=== PATIENT | female | born 1955 | race Caucasian/White ===

== ENCOUNTER 2021-03-08 18:37 | Emergency (ER) | payer OTHER, SELFPAY ==
--- NOTE | 2021-03-08 18:46 | ED.URI ---
HPI - URI/Sore Throat General Chief Complaint: Upper Respiratory Infection Stated Complaint: Fever, Coughing, drainage Time Seen by Provider: 03/08/21 19:14 Source: patient and RN notes reviewed Mode of arrival: ambulatory Limitations: no limitations History of Present Illness HPI Narrative: 65-year-old female with 40-year history of smoking presents with concern for cough, chest congestion, head congestion, nasal drainage, postnasal drainage, irritated throat. Reports fever started today. Reports she has not been vaccinated for Covid, works with the public at a grocery store. She denies body aches, chills, sweats, nausea, vomiting, diarrhea, headache, loss of sense of taste or smell. MD elicited complaint: cough Related Data Allergies Allergy/AdvReac Type Severity Reaction Status Date / Time No Known Allergies Allergy Verified 03/08/21 18:48 Review of Systems Review of Systems: Narrative: CONSTITUTIONAL: Denies malaise, chills, sweats, or fever. EYES: Denies visual changes, redness, or discharge. ENT: Reports rhinorrhea, congestion, postnasal drainage, irritated throat. Denies sinus pain, otalgia and sore throat. CARDIOVASCULAR: Denies chest pain, palpitations, or edema. RESPIRATORY: Reports cough. Denies dyspnea. GASTROINTESTINAL: Denies abdominal pain, nausea, vomiting, diarrhea SKIN: Denies rash or itching. MUSCULOSKELETAL: Denies myalgia. NEUROLOGIC: Denies headache. All systems reviewed & are unremarkable except as noted in HPI and below PMFSH Comments At time of signature, agree with nursing past medical, surgical, social and family history. There is no relevant family history pertinent to the presenting complaint Exam Narrative: Exam Narrative: GENERAL: Well-appearing, well-nourished, and in no acute distress. HEAD: Normocephalic EYES: PERRLA, conjunctivae clear ENT: Nares clear, turbinates edematous and erythematous, clear discharge. Mucous membranes moist. TM pearly rodarte with dull light reflex bilaterally; no tragal tenderness. Oropharynx not erythematous without lesions. Tonsils not enlarged and without exudate, no drooling, no hoarseness, no trismus, uvula midline. NECK: Supple. No lymphadenopathy CHEST: Scattered rhonchi, breath sounds equal. No wheezing, rales, or stridor. No respiratory distress, speaks in full sentences. HEART: Regular rate and rhythm. No murmur heard. SKIN: Warm, dry, no rash. NEURO: Alert and oriented x3. PSYCH: Normal mood and affect Course Course Emergency Course: Patient is aware of diagnosis, understands and agrees to treatment plan. Anticipatory guidance given. Patient agrees to follow-up as directed and is aware of reasons to seek care at the emergency department. Portions of this record may have been created with voice recognition software Vital Signs Vital signs: Vital Signs Temperature 100.5 F H 03/08/21 18:50 Pulse Rate 100 03/08/21 18:50 Respiratory Rate 20 03/08/21 18:50 Blood Pressure 179/83 H 03/08/21 18:50 Pulse Oximetry 97 03/08/21 18:50 Temperature 100.5 F H 03/08/21 18:50 Pulse Rate 100 03/08/21 18:50 Respiratory Rate 20 03/08/21 18:50 Blood Pressure 179/83 H 03/08/21 18:50 Pulse Oximetry 97 03/08/21 18:50 Reviewed. MDM - URI/Sore Throat MDM Narrative Medical decision making narrative: Differential diagnosis considered: Brandt virus, strep pharyngitis, allergic rhinitis, upper respiratory tract infection, sinusitis, rhinosinusitis, nasopharyngitis. viral pharyngitis, otitis media, otitis externa, pneumonia, bronchitis, viral cough syndrome, viral syndrome, and influenza. Exam findings show no acute concerns or changes; patient is non-toxic appearing and is in no distress. Patient is appropriate for outpatient treatment and follow-up. Lab Data Attestation: I reviewed the patient's lab results. Labs: Lab Results 03/08/21 Range/Units 19:04 POC SARS CoV-2 Ag Negative (Negative) Strep Screen Presump
[2021-03-08 18:50] VITALS: BP 179/83; PULSE 100; RESP 20; TEMP 38.1; O2SAT 97
[2021-03-08 19:25] VITALS: BP 150/80
--- NOTE | 2021-03-12 15:50 | PC.NURSE ---
clinical lab report received. noted sars-cov-2 PCR not performed. Director Tej Bello and pt aware. pt states will not do repeat test at this time, stating her rapid covid test was negative at clinic. states she will speak to covid hotline at work to determine if able to go back to work. states she should no longer be on isolation because her initial symptoms, which started 10 days, ago are gone.
== END 2021-03-08 19:25 | disposition home or self-care (01) ==
PROVIDERS: Emergency Provider Nurse Practitioner
DX: J32.9 Chronic sinusitis, unspecified (principal); J40 Bronchitis, not specified as acute or chronic; Z20.822 Contact with and (suspected) exposure to COVID-19
CPT/HCPCS: 87081; 87426; 87880; 99203; C9803; G0463; U0003; U0005

== ENCOUNTER 2021-03-15 16:40 | Emergency (ER) | payer OTHER, SELFPAY ==
[2021-03-15 16:56] VITALS: BP 145/87; PULSE 116; RESP 20; TEMP 36.9; O2SAT 98
--- NOTE | 2021-03-15 17:13 | ED.SKABFB ---
HPI - Skin/Abscess/Foreign Bdy General Chief complaint: Skin/Abscess/Foreign Body Stated complaint: pos spider bite on back History of Present Illness HPI narrative: This is a 65-year-old female comes in complaining she what she believes to be is a bug bite patient states that she has severe pain at nighttime is on her right chest and the right side of her back they not only itch but they are very painful Related Data Allergies Allergy/AdvReac Type Severity Reaction Status Date / Time No Known Allergies Allergy Verified 03/08/21 18:48 Review of Systems Review of Systems: Narrative: CONSTITUTIONAL: Denies fever, chills, or sweats. EYES: Denies visual changes, redness, or discharge. ENT: Denies rhinorrhea, congestion, sore throat, or otalgia. CARDIOVASCULAR:Denies chest pain, palpitations, or edema. RESPIRATORY: Denies cough or dyspnea. GASTROINTESTINAL: Denies abdominal pain, nausea, vomiting, or diarrhea. GENITOURINARY: Denies dysuria or hematuria. SKIN reports rash or itching. Rash to chest and back right side MUSCULOSKELETAL:Denies back pain, joint pain, or myalgia. NEUROLOGIC: Denies headache, numbness, or weakness. PSYCHIATRIC:Denies anxiety or depression PMFSH Comments At time as signature, I have reviewed and agree with nursing past medical, social, surgical and family history. Please see nursing chart for further information. There is no relevant family history pertinent to the presenting complaint. Exam Narrative: Exam Narrative: GENERAL:Well-appearing, well-nourished, and in no acute distress. HEAD:Normocephalic, atraumatic. EYES: PERRLA and EOMI. ENT: Nares clear, no rhinorrhea or epistaxis. Mucous membranes moist. NECK: Supple. CHEST: Clear to auscultation. No respiratory distress. HEART: Regular rate and rhythm. Normal peripheral pulses. ABDOMEN: Soft, nontender, nondistended, normal active bowel sounds. EXTREMITIES: Normal range of motion. No edema. SKIN: Warm, dry, erythema with ecchymosis pinpoint weeping circular bullea rash left breast area and left back NEURO: No focal deficits. Alert and oriented x3. Course Vital Signs Vital signs: Vital Signs Temperature 98.5 F 03/15/21 16:56 Pulse Rate 116 H 03/15/21 16:56 Respiratory Rate 20 03/15/21 16:56 Blood Pressure 145/87 H 03/15/21 16:56 Pulse Oximetry 98 03/15/21 16:56 Temperature 98.5 F 03/15/21 16:56 Pulse Rate 116 H 03/15/21 16:56 Respiratory Rate 20 03/15/21 16:56 Blood Pressure 145/87 H 03/15/21 16:56 Pulse Oximetry 98 03/15/21 16:56 Discharge Plan Discharge Clinical Impression: Shingles Qualifiers: Herpes zoster complications: without complications Qualified Code(s): B02.9 - Zoster without complications Patient Disposition: Home, Self-Care Condition: Stable Instructions: Antibiotic Form, Shingles (ED) Additional Instructions: Use skin creams/lotion, such as those containing calamine or pramoxine to reduce itchiness Avoid scratching when possible to prevent worsening of the condition and disruption of the skin that could lead to bacterial infection To relieve itching, place a cool washcloth or some ice over the area that itches, rather than scratching Return to the office or seek ER visit if condition is not improving or worsens with fever, swelling, difficulty breathing or swallowing. Patient Language: Pashto Prescriptions: New valacyclovir [Valtrex] 1 gram tablet 1,000 mg PO TID 7 Days Qty: 21 RF: 0 No Action doxycycline monohydrate 100 mg tablet 100 mg PO BID 7 Days Qty: 14 RF: 0 methylprednisolone [Medrol (Leon)] 4 mg tablets,dose pack See Rx Instructions .ROUTE .COMPLEX Qty: 21 RF: 0 Follow-up/Referrals: PHYSICIAN,HOSPITAL ADMINISTRATIVE ASSISTANT [Primary Care Provider] - Time of Disposition: 17:24
== END 2021-03-15 17:28 | disposition home or self-care (01) ==
PROVIDERS: Emergency Provider Nurse Practitioner Family
DX: B02.9 Zoster without complications (principal)
CPT/HCPCS: 99213; G0463

== ENCOUNTER 2022-06-07 13:28 | Emergency (ER) | payer MEDICARE, SELFPAY ==
--- NOTE | ~2022-06-07 | CT_ITS ---
EXAMINATION: CT abdomen pelvis wo con DATE: 06/07/2022 14:14 INDICATION: Right flank pain. TECHNIQUE: Computed tomography (CT) of the abdomen and pelvis was performed without intravenous contr ast. Automated exposure control and iterative reconstruction technique were employed. The dose-length product was 180.58 mGy-cm. COMPARISON: None. FINDINGS: The visualized portions of the lung bases demonstrate centrilobular nodules and tree-in-bud opacities in the lower lobes, left worse in right, consistent with pneumonia. There is mucous pluggi ng in the lower lobes. There is mild bronchiectasis and mucous plugging in right middle lobe and ling isai. No pleural effusion. The heart size is normal. There is a small pericardial effusion. The liver, gallbladder, spleen, pancreas, and adrenal glands are normal. There are cysts in the kidneys measuri ng up to 2.9 cm on the left. There are hemorrhagic cysts in the kidneys measuring up to 17 mm on the left. There are 4 stones measuring up to 4 mm in right kidney. There are 2 stones measuring up to 5 m m in left kidney. There are no dilated loops of bowel. The appendix is normal. There are no pathologi krysta enlarged lymph nodes. There is no free intraperitoneal fluid. There is a left inguinal hernia c ontaining fat. There are multiple chronic compression fractures in the spine. There is moderate lumba r spondylosis. 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 IMPRESSION: 1. Bilateral nonobstructing kidney stones. 2. Bilateral lower lobe pneumonia. 3. Small pericardial effusion. Reviewed, dictated and finalized at location A.
--- NOTE | ~2022-06-07 | XR_ITS ---
EXAMINATION: XR chest 1V portable DATE: 06/07/2022 14:00 INDICATION: Shortness of breath and cough. TECHNIQUE: A single frontal view of the chest was obtained. COMPARISON: None. FINDINGS: The chest demonstrates clear lungs without pneumonia, pleural effusion, or pneumothorax. Th e heart size is normal. IMPRESSION: 1. No acute cardiopulmonary disease. Reviewed, dictated and finalized at location A.
[2022-06-07 13:31] VITALS: BP 150/100; PULSE 108; RESP 16; TEMP 36.8; O2SAT 98
--- NOTE | 2022-06-07 13:35 | ED.FEMALEGU ---
HPI - Female Genitourinary General Chief complaint: Urogenital-Female Stated complaint: right flank pain Time Seen by Provider: 06/07/22 13:34 History of Present Illness HPI Narrative: Patient is a 66-year-old female presenting with right flank pain. Patient states that for the last several weeks she has had intermittent sharp right flank pain. States that this is associated with decreased urination. States that she no longer feels the urge to urinate. States that she has been drinking plenty of water and her urine continues to be dark. She denies midline back pain, saddle anesthesia, bladder or bowel incontinence. Patient states that she has been getting over a cold lately and she had slight fever yesterday. States she has also had a productive cough and slight shortness of breath. She denies headache, chest pain, abdominal pain, nausea or vomiting, diarrhea, dysuria, leg swelling. Related Data Allergies Allergy/AdvReac Type Severity Reaction Status Date / Time No Known Allergies Allergy Verified 06/07/22 13:33 Review of Systems Review of Systems: All systems reviewed & are unremarkable except as noted in HPI and below Exam Narrative: GENERAL: Well-appearing, well-nourished, and in no acute distress. HEAD: Normocephalic, atraumatic. EYES: PERRLA and EOMI. ENT: Nares clear, no rhinorrhea or epistaxis. Mucous membranes moist. NECK: Supple. CHEST: Clear to auscultation. No respiratory distress. HEART: Regular rate and rhythm. No murmur heard. Normal peripheral pulses. ABDOMEN: Soft, nontender, nondistended, normal active bowel sounds. No CVA tenderness. EXTREMITIES: Normal range of motion. No edema. SKIN: Warm, dry, no rash. NEURO: No focal deficits. Alert and oriented x3. PSYCH: Normal mood and affect. Course Vital Signs Vital signs: Vital Signs Temperature 98.2 F 06/07/22 13:31 Pulse Rate 108 H 06/07/22 13:31 Respiratory Rate 16 06/07/22 13:31 Blood Pressure 150/100 H 06/07/22 13:31 Pulse Oximetry 98 06/07/22 13:31 Temperature 99.6 F 06/07/22 14:30 Pulse Rate 105 H 06/07/22 15:46 Respiratory Rate 16 06/07/22 15:46 Blood Pressure 187/91 H 06/07/22 15:46 Pulse Oximetry 97 06/07/22 15:46 MDM - Female Genitourinary MDM Narrative Medical decision making narrative: Patient is a 66-year-old female presenting with right flank pain and decreased urination. Patient is tachycardic, otherwise vitals are within normal limits. Exam is unremarkable. CT abdomen pelvis shows kidney stones in the right kidney as well as bilateral cysts some of which are hemorrhagic. This fits with her urinalysis with numerous RBCs. Blood work remarkable for leukocytosis. There is also evidence of pneumonia in her lung bases. We will start her on Augmentin and azithromycin. She continues to saturate well on room air. Recommended she follow-up closely with urology as well as primary care. Strict return precautions were given. Patient voiced understanding and is agreeable with plan. Discharged in stable condition. Lab Data Result diagrams: 06/07/22 14:02 06/07/22 14:02 Labs: Lab Results 06/07/22 06/07/22 06/07/22 Range/Units 14:01 14:02 14:02 WBC 14.9 H (4.5-10.0) K/mm3 RBC 4.08 L (4.2-5.4) M/mm3 Hgb 12.6 (12.0-15.0) g/dL Hct 37.2 (37.0-47.0) % MCV 91.2 (80-100) fl MCH 30.9 (26-34) pg MCHC 33.9 (32-36) g/dl RDW 13.8 (11.5-14.5) % Plt Count 197 (150-375) k/mm3 MPV 11.2 H (7.4-10.4) fl Immature Gran % (Auto) 0.4 (0-0.5) % Neut % (Auto) 83.5 H (45.5-73.1) % Lymph % (Auto) 8.8 L (18.3-44.2) % [place] % (Auto) 6.4 (2.6-8.5) % Eos % (Auto) 0.6 (0-4.4) % Baso % (Auto) 0.3 (0.2-1.2) % Lymph # (Auto) 1.31 (0.9-3.2) K/mm3 [place] # (Auto) 1.0 H (0.1-0.6) K/mm3 Eos # (Auto) 0.1 (0-0.3) K/mm3 Baso # (Auto) 0.1 (0.0-0.1) K/mm3 Abs Immat Gran (auto) 0.06 H (0.00-0.031) K/mm
[2022-06-07 13:53] VITALS: BP 201/92; PULSE 107; RESP 24; O2SAT 98
[2022-06-07 14:00] VITALS: BP 196/102; PULSE 111; RESP 21
[2022-06-07 14:07] LABS: Basophils Absolute Auto 0.1 K/mm3 (0.0-0.1); Basophils Percent Auto 0.3 % (0.2-1.2); Eosinophils Absolute Auto 0.1 K/mm3 (0-0.3); Eosinophils Percent Auto 0.6 % (0-4.4); Hematocrit 37.2 % (37.0-47.0); Hemoglobin 12.6 g/dL (12.0-15.0); Immature Granulocyte Absolute 0.06 K/mm3 (0.00-0.031); Immature Granulocyte Percent A 0.4 % (0-0.5); Lymphocytes Absolute Auto 1.31 K/mm3 (0.9-3.2); Lymphocytes Percent Auto 8.8 % (18.3-44.2); Mean Corpuscular HGB Conc 33.9 g/dl (32-36); Mean Corpuscular Hemoglobin 30.9 pg (26-34); Mean Corpuscular Volume 91.2 fl (80-100); Mean Platelet Volume 11.2 fl (7.4-10.4); Monocytes Percent Auto 6.4 % (2.6-8.5); Neutrophils Absolute Auto 12.5 K/mm3 (1.3-6.7); Neutrophils Percent Auto 83.5 % (45.5-73.1); Platelet Count Result 197 k/mm3 (150-375); Red Blood Count 4.08 M/mm3 (4.2-5.4); Red Cell Distribution Width 13.8 % (11.5-14.5); White Blood Count 14.9 K/mm3 (4.5-10.0)
[2022-06-07 14:08] LABS: Appearance Urine Clear (Clear); Bilirubin Urine Negative (Negative); Blood Urine 3+ (Negative); Color Urine Yellow (Yellow); Glucose Urine UA Negative (Negative); Ketones Urine 1+ mg/dL (Negative); Leukocyte Esterase Ur Trace LEU/UL (Negative); Nitrate Urine Negative (Negative); Protein Urine 2+ mg/dL (Negative); Specific Grav Ur 1.015 (1.001-1.035); Urobilinogen Urine 0.2 mg/dL (<2.0)
[2022-06-07] MEDS: SODIUM CHLORIDE 0.9% IV 1,000 ML 999 ML IV CONT (14:12)
[2022-06-07 14:15] LABS: Mucus Urine Rare /lpf; RBC Urine >75 /hpf (0-2); Squamous Epithelial Cell Urine Few /hpf (Few)
[2022-06-07 14:16] LABS: Add Urine Microscopic? YES
[2022-06-07 14:20] LABS: Alanine Aminotransferase 44 U/L (6-35); Albumin Level 4.4 g/dL (3.5-5.1); Alkaline Phosphatase 71 U/L (38-126); Anion Gap 11 mmol/L (8-16); Aspartate Amino Transferase 53 U/L (14-36); Bilirubin,Total 0.8 mg/dL (0.2-1.3); Blood Urea Nitrogen 11 mg/dL (7-17); Calcium 8.9 mg/dL (8.4-10.2); Carbon Dioxide 20 mmol/L (22-30); Chloride 106 mmol/L (98-107); Estimated CRCL calculation 54 ml/min; Estimated Glomerular Filt Rate > 60; Glucose 110 mg/dL (65-110); Potassium 3.5 mmol/L (3.4-5.0); Sodium 137 mmol/L (137-145)
[2022-06-07 14:30] VITALS: BP 195/93; PULSE 94; RESP 25; TEMP 37.6; O2SAT 100
[2022-06-07 14:32] VITALS: BP 195/93; PULSE 102; RESP 24; O2SAT 98
[2022-06-07] MEDS: AZITHROMYCIN 250 MG TABLET 500 MG PO (15:41)
[2022-06-07] MEDS: AMOXICILLIN/CLAVULANATE K 875-125 MG TAB 1 TABLET PO (15:41)
[2022-06-07 15:46] VITALS: BP 187/91; PULSE 105; RESP 16; O2SAT 97
== END 2022-06-07 15:55 | disposition home or self-care (01) ==
PROVIDERS: Emergency Provider Emergency Medicine
DX: J18.9 Pneumonia, unspecified organism (principal); N28.1 Cyst of kidney, acquired; R31.9 Hematuria, unspecified
CPT/HCPCS: 36415; 71045; 74176; 80053; 81001; 85025; 87086; 87088; 96360; 96361; 99284; A9270; J7030

== ENCOUNTER 2022-06-19 13:28 | Outpatient (CLI) | payer BC, MEDICARE, SELFPAY ==
[2022-06-19 14:17] LABS: Alanine Aminotransferase 21 U/L (6-35); Albumin Level 4.6 g/dL (3.5-5.1); Alkaline Phosphatase 65 U/L (38-126); Anion Gap 12 mmol/L (8-16); Aspartate Amino Transferase 34 U/L (14-36); Bilirubin,Total 0.4 mg/dL (0.2-1.3); Blood Urea Nitrogen 27 mg/dL (7-17); Calcium 9.5 mg/dL (8.4-10.2); Carbon Dioxide 23 mmol/L (22-30); Chloride 104 mmol/L (98-107); Cholesterol 225 mg/dL (0-200); Estimated Glomerular Filt Rate > 60; Glucose 94 mg/dL (65-110); HDL Direct 58 mg/dL; Potassium 3.5 mmol/L (3.4-5.0); Sodium 139 mmol/L (137-145); Triglycerides 75 mg/dL (<150)
[2022-06-19 14:28] LABS: LDL Cholesterol Direct 127 mg/dL
[2022-06-19 14:42] LABS: Creatinine Urine 109.5 mg/dL
[2022-06-19 14:47] LABS: MALB Creatinine Ratio 91.1 mg/g (0-30); Microalbumin Urine Random 99.7 mg/L (0-16.7)
[2022-06-19 17:26] LABS: Free T4 Free Thyroxine Reflex 0.95 ng/dL (0.78-2.19)
[2022-06-19 19:03] LABS: Total Triiodothyronine (T3) 1.24 NG/ML (0.97-1.69)
== END 2022-06-19 13:29 | disposition home or self-care (01) ==
LOC: ANHLAB 13:33
PROVIDERS: PCP Emergency Medicine; Visit Provider Emergency Medicine
DX: I10 Essential (primary) hypertension (principal)
CPT/HCPCS: 36415; 80053; 80061; 82043; 84439; 84443; 84480

== ENCOUNTER 2022-06-19 13:35 | Outpatient (CLI) | payer BC, MEDICARE, SELFPAY ==
--- NOTE | ~2022-06-19 | XR_ITS ---
EXAMINATION: XR abdomen/kub 1V INDICATION: Calcium kidney stone TECHNIQUE: Supine views of the abdomen were obtained on 2 radiographs. COMPARISON: 06/07/2022 FINDINGS: There are adjacent stones in the lower pole of the right kidney measuring 3 mm and 2 mm. A punctate 2 mm stone is seen in the upper pole of the right kidney. Bowel contents project over the le ft kidney limiting sensitivity for renal stones. There is a 3 mm stone of the left kidney. Phlebolith s are noted in the pelvis. No stones are identified along the expected courses of ureters or within t he urinary bladder. A moderate volume of colonic stool is present. IMPRESSION: 1. Bilateral nephrolithiasis. Reviewed, dictated and finalized at location A.
== END 2022-06-19 13:36 | disposition home or self-care (01) ==
LOC: ANHIMG 13:39
PROVIDERS: PCP Emergency Medicine; Visit Provider Urology
DX: N20.0 Calculus of kidney (principal)
CPT/HCPCS: 74018

== ENCOUNTER 2022-06-24 11:01 | Outpatient (CLI) | payer BC, MEDICARE, SELFPAY ==
[2022-06-27 02:25] LABS: Thyroglobulin 198.3 ng/mL (2.8-40.9); Thyroglobulin Antibodies <1 IU/mL (<=1); Thyroid Peroxidase Antibodies 2329 IU/mL (<9)
== END 2022-06-24 11:02 | disposition home or self-care (01) ==
PROVIDERS: PCP Emergency Medicine; Visit Provider Emergency Medicine
DX: E03.8 Other specified hypothyroidism (principal)
CPT/HCPCS: 36415; 84432; 86376; 86800

== ENCOUNTER 2022-08-24 12:58 | Outpatient (CLI) | payer BC, MEDICARE, MEDICAID, SELFPAY ==
--- NOTE | ~2022-08-24 | CT_ITS ---
EXAMINATION: CT lung screening DATE: 08/24/2022 13:26 INDICATION: Personal history of tobacco dependence TECHNIQUE: Computed tomography (CT) of the chest was performed without intravenous contrast. The dose -length product was 60.57 mGy-cm. Automated exposure control and iterative reconstruction technique w ere employed. COMPARISON: Chest x-ray dated 06/07/2022 FINDINGS: There is atherosclerosis of the aorta and coronary arteries. No significant pleural effusio n. Small pericardial effusion. No thoracic lymphadenopathy. There is a 2.5 cm right renal cyst. There is a 2 mm left upper lobe nodule. There is a 2 mm right upper lobe nodule. Mild emphysema. No endobr onchial lesions. No pneumothorax. No focal airspace disease. There is a mild wedge compression deform ity of T11 and L1, likely chronic. IMPRESSION: 1. Lung-RADS category 2: Benign appearance or behavior. Continue annual screening with noncontrast lo w-dose chest CT in 12 months. Reviewed, dictated and finalized at location A. OOM HOST IMPRESSION: 1. Lung-RADS category 2: Benign appearance or behavior. Continue annual screeni ng with noncontrast low-dose chest CT in 12 months.
== END 2022-08-24 12:59 | disposition home or self-care (01) ==
PROVIDERS: PCP Emergency Medicine; Visit Provider Emergency Medicine
DX: Z12.2 Encounter for screening for malignant neoplasm of respiratory organs (principal); F17.210 Nicotine dependence, cigarettes, uncomplicated
CPT/HCPCS: 71271

== ENCOUNTER 2022-09-07 01:13 | Day surgery (SDC) | payer BC, MEDICARE, MEDICAID, SELFPAY ==
[2022-09-02 14:15] VITALS: BMI 21.0
--- NOTE | 2022-09-06 11:02 | WPDANESEPPF ---
Anes - Initial Pre Proc Eval Procedure: Operation Date: 09/07/22 12:30 Proposed Procedures p Screening Colonoscopy - Milo Butcher MD Date/Time: 09/06/22 11:02 Surgeon: Milo Butcher MD Pre Op Diagnosis: neoplasm screening Patient Data Age: 66 Gender: F Height: 1.55 m Weight: 50.5 kg Allergies Allergy/AdvReac Type Severity Reaction Status Date / Time No Known Allergies Allergy Verified 09/07/22 11:32 Home Medications Medication Instructions Recorded Confirmed Type lisinopril 20 1 tablet PO DAILY #90 tabs 08/10/22 09/02/22 Rx mg-hydrochlorothiazide 12.5 mg tablet levothyroxine 50 mcg tablet 50 mcg PO .COMPLEX #30 tabs 08/20/22 09/02/22 Rx bupropion HCl 150 mg tablet,12 hr 150 mg PO BID #180 tabs 08/31/22 09/02/22 Rx sustained-release Patient hx anesthesia problems: none Family hx anesthesia problems: none Results Review: All pre-operative results and documents have been reviewed as part of the pre-operative evaluation. [facility] Past Medical History Medical History (Updated 09/06/22 @ 11:02 by Chuck Rodríguez MD) Hypertension Subclinical hypothyroidism Tobacco dependence Family History Family History Father Lung cancer Mother Hypertension Lung cancer Heart disease Sibling Lung cancer Social History Social History (Updated 08/17/22 @ 08:50 by Mireille Mcgee MA) Smoking packs per day: 0.3 Smoking cigarettes per day: 6.0 Years smoked: 45 Smoking pack-years: 13.50 Smoking status: Current every day smoker Tobacco type: cigarettes Alcohol intake: never Substance use type: does not use Lack of Transportation: No Lack of Food: Never True Current Housing: I Have Housing Concerned About Future Housing: No Difficulty Paying Gas/Electric Bills: No Difficulty Paying for Meds: No Currently Unemployed: No Education: High School Diploma/GED Difficulty w/ Childcare or Family Care: No Living arrangements: alone Anes - Eval Final PreProcedure Day of Procedure 09/06/22 11:02 Patient weight: normal Heart: regular rate and rhythm Lungs: clear to auscultation and normal air movement Airway: Mallampati scale class II Neurological: alert and oriented Last oral intake: >/= 8 hours ASA classification: II Emergent: no Anesthetic plan: proceed Anesthesia type and monitoring: general GIVS Results Review: All pre-operative results and documents have been reviewed as part of the pre-operative evaluation. Informed Consent: The patient's anesthetic plan and its attendant risks and benefits were discussed with the patient/family/POA. Questions were solicited and answers provided to the satisfaction of the patient/family/POA.
[2022-09-07 11:34] VITALS: BP 142/109; PULSE 119; RESP 20; TEMP 36.2; O2SAT 100
[2022-09-07] MEDS: LACTATED RINGERS 1,000 ML 150 ML IV CONT (11:38)
--- NOTE | 2022-09-07 11:47 | PM.HPGS ---
History of Present Illness History of Present Illness Consent: Risks, benefits, and alternatives have been discussed and questions answered. Patient agrees to proceed with procedure. Chief complaint: neoplasm screening Narrative: Jessica Nickerson is a 66 year old female here for screening colonoscopy, last one about 10 years ago Review of Systems Constitutional: Constitutional: Denies headache(s) and Denies weakness Eyes: Eyes: Denies blurry vision ENT: Reports Normal hearing present, Denies headache(s) and Denies neck pain Cardiovascular: Cardiovascular: Denies chest pain and Denies dyspnea Respiratory: Respiratory: Denies dyspnea Gastrointestinal: Gastrointestinal: Reports no additional gastrointestinal complaints Genitourinary: Genitourinary: Denies dysuria Musculoskeletal: Musculoskeletal: Denies neck pain Integumentary/Breasts: Skin/Breast: Denies dry skin Neurologic: Reports Normal hearing present, Denies headache(s) and Denies weakness Psychiatric: Psychiatric: Denies anxiety Endocrine: Endocrine: Denies change in body appearance Hematologic/Lymphatic: Hematologic/Lymphatic: Denies easy bleeding Allergic/Immunologic: Allergic/Immunologic: Denies urticaria PMFSH Past Medical History Medical History (Updated 09/07/22 @ 11:47 by Milo Butcher MD) Colon cancer screening Hypertension Subclinical hypothyroidism Tobacco dependence Family History Family History Father Lung cancer Mother Hypertension Lung cancer Heart disease Sibling Lung cancer Social History Social History (Updated 08/17/22 @ 08:50 by Mireille Mcgee MA) Smoking packs per day: 0.3 Smoking cigarettes per day: 6.0 Years smoked: 45 Smoking pack-years: 13.50 Smoking status: Current every day smoker Tobacco type: cigarettes Alcohol intake: never Substance use type: does not use Lack of Transportation: No Lack of Food: Never True Current Housing: I Have Housing Concerned About Future Housing: No Difficulty Paying Gas/Electric Bills: No Difficulty Paying for Meds: No Currently Unemployed: No Education: High School Diploma/GED Difficulty w/ Childcare or Family Care: No Living arrangements: alone Meds Home Medications and Allergies Home Medications Medication Instructions Recorded Confirmed Type lisinopril 20 1 tablet PO DAILY #90 tabs 08/10/22 09/02/22 Rx mg-hydrochlorothiazide 12.5 mg tablet levothyroxine 50 mcg tablet 50 mcg PO .COMPLEX #30 tabs 08/20/22 09/02/22 Rx bupropion HCl 150 mg tablet,12 hr 150 mg PO BID #180 tabs 08/31/22 09/02/22 Rx sustained-release Allergies Allergy/AdvReac Type Severity Reaction Status Date / Time No Known Allergies Allergy Verified 09/07/22 11:32 Vital Signs Vital Signs - 24 hr 09/07/22 11:34 Temperature 97.1 F L Pulse Rate 119 H Respiratory Rate 20 Blood Pressure 142/109 H Pulse Oximetry 100 Oxygen Delivery Room Air Exam Const: General: comfortable and no acute distress HENMT: Face/Nose/Sinus: Normal nares present Eyes: General: appearance normal, both eyes and all related structures Neck: Neck: no JVD Resp: Auscultation: clear to auscultation bilaterally Cardio: Rate: regular rate Rhythm: regular rhythm GI: Inspection: non-distended GI Palp: Yes Soft to palpation Skin: General skin exam: normal color Neuro: General: gait normal Speech: normal speech Extrem: General: normal to inspection Psych: Mental Status: mental status grossly normal Assessment and Plan Assessment and plan (1) Colon cancer screening: Code(s): Z12.11 - Encounter for screening for malignant neoplasm of colon Status: Acute Assessment and Plan: colonoscopy
[2022-09-07 12:05] VITALS: BP 77/41; PULSE 87; RESP 16; O2SAT 99
[2022-09-07 12:15] VITALS: BP 87/43; PULSE 79; RESP 21; O2SAT 99
[2022-09-07 12:25] VITALS: BP 104/56; PULSE 85; RESP 16; O2SAT 99
== END 2022-09-07 12:36 | disposition home or self-care (01) ==
PROVIDERS: PCP Emergency Medicine; Visit Provider Internal Medicine Gastroenterology
PROC: 0DJD8ZZ Inspection of Lower Intestinal Tract, Via Natural or Artificial Opening Endoscopic (ICD-10-PCS; CPT 45378; principal; 2022-09-07 12:30)
DX: Z12.11 Encounter for screening for malignant neoplasm of colon (principal); K57.30 Diverticulosis of large intestine without perforation or abscess without bleeding; I10 Essential (primary) hypertension; E03.9 Hypothyroidism, unspecified; F17.210 Nicotine dependence, cigarettes, uncomplicated
CPT/HCPCS: 45378; J2704; J7120

== ENCOUNTER 2022-10-26 08:23 | Outpatient (CLI) | payer BC, MEDICARE, MEDICAID, SELFPAY ==
--- NOTE | ~2022-10-26 | DEXA_ITS ---
Bone Density Report Name: CELY CARCAMO Age: 67 Sex: Female Ethnicity: White Date of : 1955 Indication: postmenopausal; screening for osteoporosis; height loss; prior fracture; Referring Provider: CHARBEL FINK Study: Bone densitometry was performed. Exam Date: October 26, 2022 Accession number: [id number] Bone Density: Region BMD T-score Z-score Classification AP Spine(L1-L4) 0.731 -2.9 -1.0 Osteoporosis Femoral Neck (Left) 0.569 -2.5 -1.0 Osteoporosis Total Hip (Left) 0.654 -2.4 -1.1 Osteopenia Femoral Neck (Right) 0.561 -2.6 -1.0 Osteoporosis Total Hip (Right) 0.689 -2.1 -0.8 Osteopenia Total Hip Mean 0.672 -2.3 -1.0 Osteopenia World Health Organization criteria for BMD impression classify patients as: Normal (T-score at or above -1.0), Osteopenia (T-score between -1.0 and -2.5), or Osteoporosis (T-score at or below -2.5). 10-year Fracture Risk: FRAX not reported because: Some T-score for Spine Total or Hip Total or Femoral Neck at or below -2.5 Clinical Information Provided by Patient: Has had a low trauma fracture Smokes Patient maximum height was 62 Menopause Age: 46 No regular weight bearing exercise Onset of menses at age 13 Number of children 2 Impression: The patient has established osteoporosis, based on the Total Spine T-score and the existence of a prior fracture. The patient has risk factors, including: smoking, previous fracture. Discussion: HIGH RISK OF FRACTURE. BONE DENSITY IS UNDESIRABLY LOW AT ONE OR MORE SKELETAL SITES, CONSISTENT WITH POSTMENOPAUSAL OSTEOPOROSIS. This patient's lowest T-score, in a patient who has previously fractured, meets the World Health Organization's (WHO) criteria for severe osteoporosis. In untreated patients, the risk of osteoporotic fracture increases approximately two-fold for each 1.0 SD decrease in T-score. Low bone density is not the only risk factor for fracture; also consider factors such as patient's age, frailty or poor health, risk of falling, risk of injury, previous osteoporotic fracture, family history of osteoporosis, cigarette smoking, low body weight, etc. Not everyone with low bone mineral density has osteoporosis; osteomalacia and other metabolic bone disorders should also be considered. Patients who have osteoporosis should be evaluated for specific diseases and conditions (secondary causes) that may cause or contribute to bone loss. The [place] [employer]ocrinologists (AACE) and National Osteoporosis Foundation (NOF) recommend pharmacologic intervention for all postmenopausal women whose T-score is in this range. The patient should follow a healthful lifestyle (good nutrition with adequate calcium and vitamin D, and appropriate weight-bearing exercise). Follow-Up: Consider a repeat BMD and Vert
--- NOTE | ~2022-10-26 | MM_ITS ---
EXAMINATION: MM screening richy BI w dahiana HISTORY: Screening mammogram TECHNIQUE: Craniocaudal and mediolateral oblique 3-D tomosynthesis images were obtained and synthetic 2-D images were generated. CAD analysis was submitted and interpreted. COMPARISON: No prior mammogram is available for comparison at this institution. BREAST PARENCHYMAL COMPOSITION: The breasts are heterogeneously dense, which may obscure small masses . FINDINGS: There asymmetries of the left breast. Diagnostic left mammogram is recommended, with ultras ound if required. Otherwise no suspicious mass or architectural distortion of the breasts is noted. Occasional benign calcifications. No malignant calcification. No skin thickening or retraction. IMPRESSION: 1. Left mammographic asymmetries 2. Diagnostic left mammogram and left breast ultrasound examination are recommended BI-RADS Category 0: Incomplete: Needs additional imaging evaluation. Reviewed, dictated and finalized at location A. ORK CONSULTANT IMPRESSION: 1. Left mammographic asymmetries 2. Diagnostic left mammogram and left breast ultrasound examination are recomme nded BI-RADS Category 0: Incomplete: Needs additional imaging evaluation.
== END 2022-10-26 08:24 | disposition home or self-care (01) ==
PROVIDERS: PCP Emergency Medicine; Visit Provider Emergency Medicine
DX: Z12.31 Encounter for screening mammogram for malignant neoplasm of breast (principal); Z13.820 Encounter for screening for osteoporosis; F17.200 Nicotine dependence, unspecified, uncomplicated; R92.8 Other abnormal and inconclusive findings on diagnostic imaging of breast; M81.0 Age-related osteoporosis without current pathological fracture; M85.89 Other specified disorders of bone density and structure, multiple sites
CPT/HCPCS: 77063; 77067; 77080

== ENCOUNTER 2022-11-16 11:15 | Outpatient (CLI) | payer BC, MEDICARE, MEDICAID, SELFPAY ==
--- NOTE | ~2022-11-16 | MMUS_ITS ---
EXAMINATION: MM diagnostic richy LT w dahiana, US breast LT complete HISTORY: Left mammographic asymmetries reported on October 26, 2022 screening mammogram examination TECHNIQUE: Additional 3-D tomosynthesis images of the left breast were performed and synthetic 2-D im ages were generated. CAD analysis was submitted and interpreted. High resolution complete left breast ultrasound examination including all 4 quadrants and subareolar area was performed. COMPARISON: July 26, 2023 bilateral screening mammogram 03/01/2008 bilateral screening mammogram FINDINGS: MAMMOGRAPHIC FINDINGS: No suspicious mass or architectural distortion, malignant calcification, skin thickening or retractio n or significant new or developing density is detected. ULTRASOUND: No suspicious mass or shadowing, cyst or other significant sonographic finding of the left breast is detected. IMPRESSION: 1. No mammographic evidence of malignancy 2. Routine annual mammographic screening is recommended. BI-RADS Category 1: Negative Reviewed, dictated and finalized at location A. PIPE GAUGER IMPRESSION: 1. No mammographic evidence of malignancy 2. Routine annual mammographic screening is recommended. BI-RADS Category 1: Negative
== END 2022-11-16 11:16 | disposition home or self-care (01) ==
LOC: ANHIMG 11:15
PROVIDERS: PCP Emergency Medicine; Visit Provider Emergency Medicine
DX: R92.8 Other abnormal and inconclusive findings on diagnostic imaging of breast (principal)
CPT/HCPCS: 76641; 77061; 77065; G0279

== ENCOUNTER 2023-01-05 07:29 | Outpatient (CLI) | payer BC, MEDICARE, SELFPAY ==
[2023-01-05 08:01] LABS: Hematocrit 36.2 % (37.0-47.0); Hemoglobin 11.7 g/dL (12.0-15.0)
--- NOTE | 2023-01-05 08:12 | ECG_ITS ---
Measurements Intervals Kimberly Rate: 73 P: 64 SC: 139 QRS: 52 QRSD: 76 T: 72 QT: 368 QTc: 408 Interpretive Statements SINUS RHYTHM NO PREVIOUS ECG AVAILABLE FOR COMPARISON Electronically Signed On 01-05-2023 17:40:32 CDT by Devonte Rojas M.D.
[2023-01-05 08:18] LABS: Anion Gap 7 mmol/L (8-16); Blood Urea Nitrogen 39 mg/dL (7-17); Calcium 9.1 mg/dL (8.4-10.2); Carbon Dioxide 29 mmol/L (22-30); Chloride 106 mmol/L (98-107); Estimated Glomerular Filt Rate 41; Glucose 89 mg/dL (65-110); Potassium 4.6 mmol/L (3.4-5.0); Sodium 142 mmol/L (137-145)
== END 2023-01-05 07:30 | disposition home or self-care (01) ==
PROVIDERS: Anesthesiology; PCP Emergency Medicine; Visit Provider Obstetrics & Gynecology
DX: Z01.812 Encounter for preprocedural laboratory examination (principal); Z01.810 Encounter for preprocedural cardiovascular examination; R87.619 Unspecified abnormal cytological findings in specimens from cervix uteri; I10 Essential (primary) hypertension
CPT/HCPCS: 36415; 80048; 85014; 85018; 93005

== ENCOUNTER 2023-01-08 00:43 | Day surgery (SDC) | payer BC, MEDICARE, MEDICAID, SELFPAY ==
--- NOTE | 2022-12-31 09:26 | PC.NURSE ---
Report to the Outpatient Waiting Room, entrance under the green pavilion located off [facility], at time 0630 on date __01/08/23 . Planned Procedure Time: _0830 . Time changes happen often and if your time is changed the preop area will call you the afternoon before. - You and your visitor will be asked to self-screen and do not enter if you have any COVID symptoms. - A mask is optional within the hospital at this time. Patients may have clear liquids (water, carbonated beverages, clear teas, apple juice) until 3 hours prior to surgery with a maximum of 20 ounces. - No food from midnight until time of surgery - Infants may have breast milk until 4 hours before surgery, infant formula 6 hours prior to surgery. - Children will be allowed to drink immediately following surgery. If applicable, please bring a bottle or sippy cup to assist with drinking. Juice, water, soda, and popsicles are readily available. For infants on formula, please bring formula the day of surgery. Pacifiers are allowed. Take the following medications with a SIP of water the morning of surgery: __LEVOTHYROXINE DO NOT STOP ANY OF YOUR OTHER PRESCRIPTION MEDICATIONS PRIOR TO SURGERY ?EXCEPT THE FOLLOWING Medications to discontinue per physician ALL VITAMINS/SUPPLEMENTS 3DAYS PRE OP.LAST DOSE 01/04/23 Please no make-up, nail persian, hairspray, perfume, deodorant, or body powder the day of surgery. No jewelry (including any body piercings) or valuables the day of surgery, leave them at home. Please take a shower or bath the night before, or the morning of, surgery with an antibacterial soap. Wear comfortable, loose fitting clothing. Children are encouraged to wear pajamas. - Jewelry must be removed prior to entering the operating room. Rings and piercings that are not removed may be cut off. - The hospital will not accept responsibility for valuables. - Please leave all valuables, including medications, at home the day of surgery. If you are going home after surgery, a licensed pile driver operator must drive you home. - NO public transportation without another adult if you receive anesthesia. - We recommend that an adult stay with you for 24 hours following discharge. - We also recommend that you do not drive, make important decision, drink alcoholic beverages, or take any drugs that were not prescribed by your health care provider for at least 24 hours after your discharge time. Follow any additional instructions given to you from your surgeon. If you or anyone in your household have experienced Covid symptoms in the past week, please notify your surgeon or the nurse liaison at the phone number below for possible testing. Telephone instructions given to __PATIENT and asked if any additional questions and then verbalized understanding. Patient advised to call surgeon office or pre surgery nurse liaison [phone] if any additional questions.
[2022-12-31 09:38] VITALS: BMI 20.5
--- NOTE | 2023-01-06 06:26 | P.HP_ITS ---
H&P: HPI History of Present Illness Date/Time: 01/06/23 06:26 Chief Complaint: squamous intraepithelial lesion Narrative: 67-year-old female with the colposcopically directed biopsies with higher grade dysplasia she will undergo a LEEP procedure PMFSH Past Medical History Medical History Colon cancer screening Hypertension Subclinical hypothyroidism Tobacco dependence Family History Family History Father Lung cancer Mother Hypertension Lung cancer Heart disease Sibling Lung cancer Social History Social History Smoking packs per day: 0.75 Smoking cigarettes per day: 15.0 Years smoked: 48 Smoking pack-years: 36.00 Smoking status: Former smoker Tobacco type: cigarettes Smoking end date: 12/10/22 Alcohol intake: never Substance use type: does not use Lack of Transportation: No Lack of Food: Never True Current Housing: I Have Housing Concerned About Future Housing: No Difficulty Paying Gas/Electric Bills: No Difficulty Paying for Meds: No Currently Unemployed: No Education: High School Diploma/GED Difficulty w/ Childcare or Family Care: No Living arrangements: alone Spiritual care concerns: No Meds Home Medications and Allergies Home Medications Medication Instructions Recorded Confirmed Type lisinopril 20 1 tablet PO DAILY #90 tabs 08/10/22 12/31/22 Rx mg-hydrochlorothiazide 12.5 mg tablet alendronate 70 mg tablet 70 mg PO WEEKLY #14 tabs 10/27/22 12/31/22 Rx varenicline 0.5 mg (11)-1 mg (42) See Rx Instructions PO PER PKG DIR 11/19/22 12/31/22 Rx tablets in a dose pack ([employer] #53 ea Starting Month Box) levothyroxine 50 mcg tablet 50 mcg PO .COMPLEX #30 tabs 12/24/22 12/31/22 Rx calcium 600 mg capsule 1,200 mg PO DAILY 12/31/22 12/31/22 History cholecalciferol (vitamin D3) 50 50 mcg PO DAILY 12/31/22 12/31/22 History mcg (2,000 unit) tablet Allergies Allergy/AdvReac Type Severity Reaction Status Date / Time No Known Allergies Allergy Verified 12/31/22 09:18 Exam Const: General: cooperative, healthy appearing, comfortable and average body h abitus Orientation/consciousness: oriented to person, oriented to place and oriented to time HENMT: Head: normal to inspection Resp: Effort & Inspection: normal respiratory effort Cardio: Rate: regular rate Rhythm: regular rhythm Heart sounds: S1 normal heart sound present and S2 normal heart sound present GI: Inspection: normal to inspection : External Female Exam: normal external appearance Speculum Exam - Vagina: normal appearance of the vagina Speculum Exam - Cervix: normal appearance of the cervix Bimanual exam- vagina & uterus: non-tender Bimanual Exam- Adnexa, other: normal adnexae Assessment and Plan Assessment and plan (1) High grade squamous intraepithelial lesion (HGSIL) on cytologic smear of cervix: Code(s): R87.613 - High grade squamous intraepithelial lesion on cytologic smear of cervix (HGSIL) Status: Acute Plan LEEP procedure
--- NOTE | 2023-01-08 05:50 | WPDHPUPDATE1 ---
History and Physical Update Update Date/Time: 01/08/23 05:50 History and Physical has been reviewed, including an updated exam of the patient. There are NO changes in the patient's condition. Risks, benefits, and alternatives have been discussed and questions answered. Patient agrees to proceed with procedure.
[2023-01-08 06:37] VITALS: BMI 19.8
[2023-01-08 06:40] VITALS: BP 141/62; PULSE 79; RESP 16; TEMP 36.4; O2SAT 100
[2023-01-08] MEDS: LACTATED RINGERS 1,000 ML 30 ML IV CONT (06:55)
[2023-01-08] MEDS: ACETAMINOPHEN 500 MG TABLET 1000 MG PO (07:05)
--- NOTE | 2023-01-08 07:24 | WPDANESEPPF ---
Anes - Initial Pre Proc Eval Procedure: Operation Date: 01/08/23 08:30 Proposed Procedures p Loop Electrical Excision Procedure - Shaun Tavera MD Date/Time: 01/08/23 07:24 Surgeon: Shaun Tavera MD Pre Op Diagnosis: abnormal pap-smear Patient Data Age: 67 Gender: F Height: 1.57 m Weight: 49.3 kg Last Vital Signs Temp 36.4 C 01/08/23 06:40 Pulse 79 01/08/23 06:40 Resp 16 01/08/23 06:40 BP 141/62 H 01/08/23 06:40 Pulse Ox 100 01/08/23 06:40 O2 Del Method Room Air 01/08/23 06:40 Allergies Allergy/AdvReac Type Severity Reaction Status Date / Time No Known Allergies Allergy Verified 01/08/23 06:52 Home Medications Medication Instructions Recorded Confirmed Type lisinopril 20 1 tablet PO DAILY #90 tabs 08/10/22 12/31/22 Rx mg-hydrochlorothiazide 12.5 mg tablet alendronate 70 mg tablet 70 mg PO WEEKLY #14 tabs 10/27/22 12/31/22 Rx varenicline 0.5 mg (11)-1 mg (42) See Rx Instructions PO PER PKG DIR 11/19/22 12/31/22 Rx tablets in a dose pack ([employer] #53 ea Starting Month Box) levothyroxine 50 mcg tablet 50 mcg PO .COMPLEX #30 tabs 12/24/22 01/08/23 Rx calcium 600 mg capsule 1,200 mg PO DAILY 12/31/22 01/08/23 History cholecalciferol (vitamin D3) 50 50 mcg PO DAILY 12/31/22 01/08/23 History mcg (2,000 unit) tablet hydrocodone 5 mg-acetaminophen 325 1 tablet PO Q4H PRN pain #14 tabs 01/08/23 Rx mg tablet Patient hx anesthesia problems: none Family hx anesthesia problems: none Results Review: All pre-operative results and documents have been reviewed as part of the pre-operative evaluation. [facility] Past Medical History Medical History Colon cancer screening Hypertension Subclinical hypothyroidism Tobacco dependence Family History Family History Father Lung cancer Mother Hypertension Lung cancer Heart disease Sibling Lung cancer Social History Social History Smoking packs per day: 0.75 Smoking cigarettes per day: 15.0 Years smoked: 48 Smoking pack-years: 36.00 Smoking status: Former smoker Tobacco type: cigarettes Smoking end date: 12/10/22 Alcohol intake: never Substance use type: does not use Lack of Transportation: No Lack of Food: Never True Current Housing: I Have Housing Concerned About Future Housing: No Difficulty Paying Gas/Electric Bills: No Difficulty Paying for Meds: No Currently Unemployed: No Education: High School Diploma/GED Difficulty w/ Childcare or Family Care: No Living arrangements: alone Spiritual care concerns: No Anes - Eval Final PreProcedure Day of Procedure 01/08/23 07:24 Patient weight: normal Heart: regular rate and rhythm Lungs: clear to auscultation and normal air movement Airway: Mallampati scale class II Neurological: alert and oriented Last oral intake: >/= 8 hours ASA classification: III Emergent: no Anesthetic plan: proceed Anesthesia type and monitoring: general GIVS and standard monitoring Results Review: All pre-operative results and documents have been reviewed as part of the pre-operative evaluation. Informed Consent: The patient's anesthetic plan and its attendant risks and benefits were discussed with the patient/family/POA. Questions were solicited and answers provided to the satisfaction of the patient/family/POA.
[2023-01-08] MEDS: LIDOCAINE HCL 1% LOCAL INJ 10 ML VIAL INFILTRATE (08:26)
[2023-01-08] MEDS: KETOROLAC 15 MG/ML VIAL (*BKC) IV PUSH (08:26)
--- NOTE | 2023-01-08 08:33 | W.PM.PROC2 ---
Procedure Note - Detailed Date of Procedure 01/08/23 Pre-op Diagnosis abnormal pap-smear Post-op Diagnosis Same Procedure Performed LEEP Surgeon Shaun Tavera MD Anesthesia General and Local Indications this is a 67-year-old female with high-grade dysplasia Findings normal-appearing cervix Description of Procedure patient was prepped draped normal sterile fashion placed in the dorsal lithotomy position. Under excellent monitored anesthesia care weighted speculum placed posterior fornix vagina 10cc of 1% xylocaine anesthesia distributed throughout the cervix. The LEEP and the form of a 50 50 blend was undertaken removing the entire transformation zone. The base was cauterized with ball cautery at 50 w for. She tolerated the procedure well there were no complications Estimated Blood Loss 1 Drains No Packing No Pathology Yes Complications No immediate complications Condition Stable Disposition PACU
[2023-01-08 08:37] VITALS: BP 100/52; PULSE 87; RESP 12; O2SAT 96
[2023-01-08 09:05] VITALS: BP 108/57; PULSE 60; RESP 14; O2SAT 100
[2023-01-08 09:35] VITALS: BP 112/57; PULSE 58
--- NOTE | 2023-01-08 09:46 | SUR.PHASEII ---
Vitals are stable. Patient is unhooked from monitors and getting dressed at this time. She is waiting for her ride to get here.
== END 2023-01-08 09:52 | disposition home or self-care (01) ==
PROVIDERS: PCP Emergency Medicine; Visit Provider Obstetrics & Gynecology
PROC: 0UBC7ZZ Excision of Cervix, Via Natural or Artificial Opening (ICD-10-PCS; CPT 57522; principal; 2023-01-08 08:30)
DX: D06.1 Carcinoma in situ of exocervix (principal); I10 Essential (primary) hypertension; E03.9 Hypothyroidism, unspecified; Z87.891 Personal history of nicotine dependence
CPT/HCPCS: 57522; 36415; 80048; 85014; 85018; 88305; 88307; 93005; A9270; J1100; J1885; J2250; J2405; J2704; J3010; J7120

== ENCOUNTER 2023-02-01 16:48 | Emergency (ER) | payer BC, MEDICARE, MEDICAID, SELFPAY ==
[2023-02-01 16:58] VITALS: BP 138/71; PULSE 102; RESP 20; TEMP 37.1; O2SAT 98
--- NOTE | 2023-02-01 17:30 | ED.URI ---
HPI - URI/Sore Throat General Chief Complaint: Upper Respiratory Infection Stated Complaint: sore throat / fever Source: patient and RN notes reviewed History of Present Illness HPI Narrative: 67 yo F presents to urgent care with complaints of a runny nose and sore throat that started yesterday. Pt reports associated cough. Denies any chest pain, shortness of breath, fevers, chills vomiting. Some parts of this dictation were generated by voice recognition software and may contain typographical and/or grammatical inaccuracies. Related Data Home Medications Medication Instructions Recorded Confirmed calcium 600 mg capsule 1,200 mg PO DAILY 12/31/22 01/08/23 cholecalciferol (vitamin D3) 50 50 mcg PO DAILY 12/31/22 01/08/23 mcg (2,000 unit) tablet Allergies Allergy/AdvReac Type Severity Reaction Status Date / Time No Known Allergies Allergy Verified 01/08/23 06:52 Review of Systems Review of Systems: Pertinent positives and pertinent negatives per HPI. [facility] Past Medical History Medical History Colon cancer screening Hypertension Subclinical hypothyroidism Tobacco dependence Family History Family History Father Lung cancer Mother Hypertension Lung cancer Heart disease Sibling Lung cancer Social History Social History Smoking packs per day: 0.75 Smoking cigarettes per day: 15.0 Years smoked: 48 Smoking pack-years: 36.00 Smoking status: Former smoker Tobacco type: cigarettes Smoking end date: 12/10/22 Alcohol intake: never Substance use type: does not use Lack of Transportation: No Lack of Food: Never True Current Housing: I Have Housing Concerned About Future Housing: No Difficulty Paying Gas/Electric Bills: No Difficulty Paying for Meds: No Currently Unemployed: No Education: High School Diploma/GED Difficulty w/ Childcare or Family Care: No Living arrangements: alone Spiritual care concerns: No Comments At the time of my signature, I reviewed and agree with the nursing past medical, surgical, social, and family history. There is no relevant family history pertinent to the patient complaint. Exam Narrative: GENERAL: This is a well-nourished, well-developed patient, in no apparent distress. HEAD: normocephalic, atraumatic. EYES: PERRL. Sclera clear/white. Vision is grossly intact. EARS: External ears normal, auditory canals clear and without drainage, TMs normal without perforation. Hearing grossly intact. NOSE: External nose normal with no obvious nasal discharge, nares without redness, no rhinorrhea. THROAT: Mucous membranes moist, posterior pharynx clear. NECK: Neck supple, non-tender without lymphadenopathy, masses or thyromegaly. CARDIOVASCULAR: Regular rate and rhythm without murmurs, gallops, or rubs. RESPIRATORY: Clear to auscultation. Breath sounds equal bilaterally. No wheezes, rales, or rhonchi. SKIN: warm, intact with no suspicious lesions or rash, good texture and turgor. NEURO: awake, alert, and oriented to person, place and time. There were no obvious focal neurologic abnormalities. BACK: Nontender without deformity or crepitance. No flank tenderness. Course Course Level of Care: Express Care Visit Vital Signs Vital signs: Vital Signs Temperature 98.7 F 02/01/23 16:58 Pulse Rate 102 H 02/01/23 16:58 Respiratory Rate 20 02/01/23 16:58 Blood Pressure 138/71 02/01/23 16:58 Pulse Oximetry 98 02/01/23 16:58 Oxygen Delivery Room Air 02/01/23 16:58 Temperature 98.7 F 02/01/23 16:58 Pulse Rate 102 H 02/01/23 16:58 Respiratory Rate 20 02/01/23 16:58 Blood Pressure 138/71 02/01/23 16:58 Pulse Oximetry 98 02/01/23 16:58 Oxygen Delivery Room Air 02/01/23 16:58 Reviewed MDM - URI/Sore Throat [facility] Narrative Medical de
== END 2023-02-01 17:44 | disposition home or self-care (01) ==
PROVIDERS: Emergency Provider Nurse Practitioner Family; PCP Emergency Medicine
DX: J06.9 Acute upper respiratory infection, unspecified (principal); Z87.891 Personal history of nicotine dependence; I10 Essential (primary) hypertension; E03.8 Other specified hypothyroidism
CPT/HCPCS: 87081; 87880; 99213; G0463